=== PATIENT | female | born 1965 | race Caucasian/White ===

== ENCOUNTER 2018-03-14 15:33 | Emergency (ER) | payer OTHER ==
[2018-03-14 15:38] VITALS: BMI 25.4
--- NOTE | 2018-03-14 15:54 | PDOC ---
History of Present Illness - General Chief Complaint: Pain Stated Complaint: PAIN Time Seen by Provider: 03/14/18 15:49 - History of Present Illness Initial Comments: 03/14/18 16:31 The patient is a 52 year old female with a history of HLD and Gallstones who presents for evaluation of RUQ abdominal pain. The patient is accompanied by family who assists in providing the history. They note that the patient experienced severe RUQ abdominal pain with associated nausea and vomiting earlier today after eating. She notes that she had similar pain several years ago due to gallstones that resolved on its own. She notes that her symptoms have significantly improved on presentation to the ED, but notes continued mild RUQ abdominal pain. She otherwise denies fevers, chills, SOB, chest pain, or changes with urination or bowel movements. Past History - Past Medical History Allergies/Adverse Reactions: Allergies Allergy/AdvReac Type Severity Reaction Status Date / Time No Known Allergies Allergy Verified 03/14/18 15:38 Home Medications: Ambulatory Orders NK [No Known Home Medication] 03/14/18 COPD: No - Suicide/Smoking/Psychosocial Hx Smoking History: Never smoked Review of Systems - Review of Systems Comments:: 03/14/18 16:33 Constitutional: No fevers, chills, fatigue, malaise HEENT: No Rhinorrhea, nasal congestion, visual changes Cardiovascular: No chest pain, syncope, palpitations, lightheadedness Respiratory: No Cough, SOB, Hemoptysis, Gastrointestinal: Abdominal pain, nausea, vomiting. No Constipation, Diarrhea, Melena Genitourinary: No Dysuria, Frequency, Urgency, Hesitancy, Hematuria, Flank pain Musculoskeletal: No Myalgia, arthralgia Skin: No rashes, itching, bruising, pallor Neurologic: No Headache, Dizziness, Numbness, Weakness, or Tingling Psychiatric: No Hallucinations. No SI or HI *Physical Exam - Vital Signs Last Vital Signs Temp Pulse Resp BP Pulse Ox 98.8 F 87 18 117/60 99 03/14/18 15:35 03/14/18 15:35 03/14/18 15:35 03/14/18 15:35 03/14/18 15:35 - Physical Exam Comments: 03/14/18 16:34 General Appearance: Nourished. No Apparent Distress HEENT: No Pharyngeal Erythema, Tonsillar Exudate, Tonsillar Erythema Neck: No Cervical Lymphadenopathy Respiratory/Chest: Lungs Clear, Normal Breath Sounds. No Crackles, Rales, Rhonchi, Wheezing Cardiovascular: Regular Rhythm, Regular Rate. No Murmur, Gallops, Rubs Gastrointestinal/Abdominal: Normal Bowel Sounds, Soft. RUQ tenderness to palpation with positive fink's sign. No Guarding, Rebound, Musculoskeletal: No CVA Tenderness Extremity: Normal Capillary Refill Integumentary: Normal Color, Dry, Warm Neurologic: Fully Oriented, Alert, Normal Mood/Affect, Normal Response, ED Treatment Course - LABORATORY CBC & Chemistry Diagram: 03/14/18 16:15 03/14/18 16:15 Medical Decision Making - Medical Decision Making 03/14/18 16:35 The patient is a 52 year old female with a history of HLD and Gallstones who presents for evaluation of RUQ abdominal pain. Differential includes but is not limited to: Cholecystitis, Gallstones, Gastritis, ACS, Infectious, metabolic Derangement. Given the patient's history and physical exam, we will obtain a cbc, cmp, troponin, lipase, ekg, gallbladder US to evaluate further. We will treat with iv fluids, zofran, and continue to monitor and reassess while here in the ED. 03/14/18 18:56 CBC, troponin, lipase are unremarkable. cmp demonstrates mild elevations in the patient's liver enzymes. Gallbladder US demonstrates gallstones with borderline wall thickness as preliminarily read by our securities consultant radiologist. The patient appears clinically well on exam with resolution of her symptoms. She has been afebrile with normal vital signs and no elevated wbc on lab results. She is tolerating PO intake without difficulty. We participated in shared decision making with the patient and will discharge the patient home with close follow up with surgery. We discussed the results, plan, and strict return precautions with the patient and her family who voiced understanding and are agreeable. *DC/Admit/Observation/Transfer Diagnosis at time of Disposition: Abdominal pain Qualifiers: Abdominal location: right upper quadrant Qualified Code(s): R10.11 - Right upper quadrant pain - Discharge Dispostion Disposition: HOME Condition at time of disposition: Stable Decision to Admit order: No - Referrals Referrals: Félix Washington MD [Staff Physician] - Shamir Reyes MD [Staff Physician] - - Patient Instructions Printed Discharge Instructions: DI for Gallstones Additional Instructions: Please return to the ER if you experience concerning or worsening symptoms including worsening difficulty breathing, weakness, or chest pain. Your lab results were normal here in the ER. Your ultrasound shows that you have gallstones. Please call to schedule a follow up appointment with our surgeon within 1-2 days to discuss your ER visit and further management of your symptoms. - Post Discharge Activity
[2018-03-14] MEDS ORDERED: SODIUM CHLORIDE 1,000 ML IV STA (16:00)
[2018-03-14] MEDS ORDERED: ONDANSETRON 4 MG/2 ML VIAL IVPUSH ONE (16:00)
[2018-03-14] MEDS ORDERED: ONDANSETRON 4 MG/2 ML VIAL ONE (16:05)
--- NOTE | 2018-03-14 16:17 | PDOC ---
Attending Attestation - Resident Resident Name: Cesar Mg - ED Attending Attestation I have performed the following: I have examined & evaluated the patient, The case was reviewed & discussed with the resident, I agree w/resident's findings & plan, Exceptions are as noted - HPI HPI: 03/14/18 16:16 52 yo female p/w RUQ pain and nausea - Physicial Exam PE: 03/14/18 18:24 wnwd 52 yo female with a h/o gallstones p/w and pain and nausea head ncat eyes eomi lungs cta b/l cvs [id number] abd +RUQ pain ext no edema.no erythema no flank pain neuro no gross focal deficits skin warm and dry - Medical Decision Making 03/14/18 19:01 LFTs are sl elevated -pt has no fever,no active vomiting, and her US showed multiple gallstones but NO pericholecystic fluid pt will follow up with surgery as outpt
[2018-03-14 16:26] LABS: BASO % 0.9 % (0-2.0); EOS % 2.4 % (0-4.5); HEMATOCRIT 39.5 % (32.4-45.2); HEMOGLOBIN 13.4 GM/dL (10.7-15.3); LYMPH % 22.8 % (8-40); MCH 31.8 pg (25.7-33.7); MEAN CELL VOLUME 93.6 fl (80-96); MEAN PLT VOLUME 8.9 fl (7.5-11.1); MONO % 5.3 % (3.8-10.2); NEUT % 68.6 % (42.8-82.8); PLATELET COUNT 221 K/MM3 (134-434); RBC 4.22 M/mm3 (3.60-5.2); WHITE BLOOD COUNT 7.6 K/mm3 (4.0-10.0)
[2018-03-14 16:35] LABS: INR 0.95 (0.83-1.09); PROTHROMBIN TIME (PATIENT) 10.7 SEC (9.7-13.0)
[2018-03-14 16:37] LABS: ACTIVATED PTT 27.8 SECONDS (25.2-36.5)
[2018-03-14 16:52] LABS: ALBUMIN 3.7 g/dl (3.4-5.0); ANION GAP 12 MMOL/L (8-16); BILIRUBIN,TOTAL 0.5 mg/dL (0.2-1.0); BLOOD UREA NITROGEN 12 mg/dL (7-18); CALCIUM 8.8 mg/dL (8.5-10.1); CHLORIDE 103 mmol/L (98-107); CO2 26 mmol/L (21-32); CREATININE 0.9 mg/dL (0.55-1.3); GLUCOSE,RANDOM 136 mg/dL (74-106); LIPASE 253 U/L (73-393); POTASSIUM 3.6 mmol/L (3.5-5.1); SGOT/AST 148 U/L (15-37); SGPT/ALT 128 U/L (13-61); SODIUM 141 mmol/L (136-145); TOT PROT 7.8 g/dl (6.4-8.2)
[2018-03-14 16:54] LABS: ALK PHOS 155 U/L (45-117)
[2018-03-14 18:38] VITALS: BP 115/61; PULSE 71; TEMP 99.5
--- NOTE | 2018-03-15 10:00 | EKG ---
Test Reason : Blood Pressure : / mmHG Vent. Rate : 082 BPM Atrial Rate : 082 BPM P-R Int : 154 ms QRS Dur : 088 ms QT Int : 374 ms P-R-T Axes : 063 045 040 degrees QTc Int : 436 ms NORMAL SINUS RHYTHM NORMAL ECG NO PREVIOUS ECGS AVAILABLE Confirmed by SHABANA KAPOOR MD ([id number]) on 03/15/2018 10:00:21 AM Referred By: Confirmed By:SHABANA KAPOOR MD
== END 2018-03-14 19:14 | disposition home or self-care (01) ==
LOC: JER 15:33
PROC: 3E033GC Introduction of Other Therapeutic Substance into Peripheral Vein, Percutaneous Approach (ICD-10-PCS; principal; 2018-03-14)
PROC: 3E0337Z Introduction of Electrolytic and Water Balance Substance into Peripheral Vein, Percutaneous Approach (ICD-10-PCS; 2018-03-14)
DX: R10.11 Right upper quadrant pain (principal)
CPT/HCPCS: 36415; 76705-TC; 80053; 82550; 83690; 84484; 85025; 85610; 85730; 93005; 93010; 96361; 96374; 99283-25; J7030

== ENCOUNTER 2021-09-12 04:56 | Day surgery (SDC) | payer OTHER ==
[2021-09-09 11:49] VITALS: BMI 25.6
[2021-09-12] MEDS ORDERED: LIDOCAINE HCL 2% JELLY 10 ML CARTRIDGE ONE (09:42)
[2021-09-12 10:04] VITALS: TEMP 97.3
[2021-09-12 10:43] VITALS: BP 128/71; PULSE 66
== END 2021-09-12 11:03 | disposition home or self-care (01) ==
LOC: JASU-ENDO 04:56
PROVIDERS: ATTEND Internal Medicine Gastroenterology
PROC: 0DB68ZX Excision of Stomach, Via Natural or Artificial Opening Endoscopic, Diagnostic (ICD-10-PCS; principal; 2021-09-12 09:30)
DX: K29.50 Unspecified chronic gastritis without bleeding (principal)
CPT/HCPCS: 88305-TC; 88342-TC

== ENCOUNTER 2021-12-13 04:23 | Day surgery (SDC) | payer OTHER ==
[2021-12-12 12:02] VITALS: BMI 27.3
[~2021-12-13 04:23] MED LIST: BUPIVACAINE HCL/PF 0.5% (5MG/ML) 10 ML VIAL IJ ONE
[2021-12-13] MEDS ORDERED: BUPIVACAINE HCL/PF 0.5% (5MG/ML) 10 ML VIAL ONE (07:19)
[2021-12-13] MEDS ORDERED: ROCURONIUM BROMIDE 50 MG/5 ML SYRINGE ONE (07:41)
[2021-12-13] MEDS ORDERED: PROPOFOL 20 ML ONE ×5 (07:41→09:25)
[2021-12-13] MEDS ORDERED: SUCCINYLCHOLINE CHLORIDE 200 MG/10 ML SYRINGE ONE ×2 (07:41)
[2021-12-13] MEDS ORDERED: LIDOCAINE HCL/PF 2% SDV 5ML VIAL ONE (07:42)
[2021-12-13] MEDS ORDERED: MIDAZOLAM HCL 2 MG/2 ML SINGLE DOSE VIAL ONE (07:42)
[2021-12-13] MEDS ORDERED: SEVOFLURANE 250 ML BTL ONE (07:43)
[2021-12-13] MEDS ORDERED: ACETAMINOPHEN INJECTION 100 ML IVPB ONE (07:53)
[2021-12-13] MEDS ORDERED: BUPIVACAINE HCL/PF 0.5% (5MG/ML) 10 ML VIAL IJ ONE ×2 (08:46→08:47)
[2021-12-13] MEDS ORDERED: NEOSTIGMINE METHYLSULFATE 0.5 MG/ML - 10 ML MDV ONE (09:44)
[2021-12-13] MEDS ORDERED: SUGAMMADEX SODIUM 200 MG/2 ML VIAL ONE (09:54)
[2021-12-13] MEDS ORDERED: ONDANSETRON 4 MG/2 ML VIAL IVPUSH PRN (10:12)
[2021-12-13] MEDS ORDERED: LACTATED RINGERS SOLUTION 1,000 ML IV SCH (10:15)
[2021-12-13] MEDS ORDERED: FENTANYL CITRATE/PF 50 MCG/ML VIAL ONE ×3 (10:27→10:53)
[2021-12-13 13:21] VITALS: BP 123/60; PULSE 70; TEMP 97.9
== END 2021-12-13 13:30 | disposition home or self-care (01) ==
LOC: JASU-SURG 04:23
PROVIDERS: ATTEND Surgery
PROC: 0FT44ZZ Resection of Gallbladder, Percutaneous Endoscopic Approach (ICD-10-PCS; principal; 2021-12-13 08:00)
DX: K80.10 Calculus of gallbladder with chronic cholecystitis without obstruction (principal)
CPT/HCPCS: 86850; 86900; 86901; 88304-TC; 94760